=== PATIENT | male | born 2000 | race Caucasian/White ===

== ENCOUNTER 2023-09-27 21:19 | Emergency (ER) | payer BC, MEDICAID ==
[~2023-09-27] VITALS: Ht 180.3 cm; Wt 69.5 kg
[2023-09-27] MEDS: LIDOcaine/epinephrine/tetracaine TOPICAL sol 3 ML syringe TOP ONE (21:40)
[2023-09-27] MEDS: LIDOCAINE 1%/EPI 1:100,000 inj. 10 ML multi-dose vial IJ ONE (22:42)
[2023-09-27 23:07] VITALS: BP 134/70; PULSE 62; RESP 16; TEMP 98.1; O2SAT 99
== END 2023-09-27 23:08 | disposition home or self-care (01) ==
LOC: ER 21:20
DX: S01.112A Laceration without foreign body of left eyelid and periocular area, initial encounter (principal); X58.XXXA Exposure to other specified factors, initial encounter; Y93.67 Activity, basketball; Y92.89 Other specified places as the place of occurrence of the external cause; Y99.8 Other external cause status
CPT/HCPCS: 12011; 99282; J3490; A6449